=== PATIENT | female | born 1965 | race Caucasian/White ===

== ENCOUNTER → 2023-04-13 15:17 | Outpatient (CLI) | payer SELFPAY ==
--- NOTE | ~2023-04-13 | US_ITS ---
EXAMINATION: US thyroid DATE: 04/13/2023 15:35 INDICATION: Thyroid nodules. TECHNIQUE: Multiple ultrasound images of the thyroid were obtained. COMPARISON: None. FINDINGS: The right thyroid lobe measures 4.9 x 1.6 x 1.9 cm. The left thyroid lobe measures 4.4 x 1.2 x 1.5 c m. The thyroid demonstrates coarsened echotexture and increased vascularity. No discrete nodule. IMPRESSION: 1. Heterogeneous, hypervascular thyroid, consistent with chronic lymphocytic (Angelica) thyroiditis. Reviewed, dictated and finalized at location A. [employer] IMPRESSION: 1. Heterogeneous, hypervascular thyroid, consistent with chronic lymphocytic (H ashimoto) thyroiditis.
== END ==
PROVIDERS: PCP Internal Medicine; Visit Provider Internal Medicine
DX: E06.3 Autoimmune thyroiditis (principal)
CPT/HCPCS: 76536